=== PATIENT | female | born 1955 | race Caucasian/White ===

== ENCOUNTER 2024-03-12 15:57 | Inpatient (IN) | payer OTHER, SELFPAY ==
[2024-03-12] VITALS (41 sets, daily range): BP systolic 59–173; BP diastolic 23–141; BMI 30.9
--- NOTE | 2024-03-12 13:51 | ED.GENMED ---
History of Present Illness
General
Chief Complaint: CODE
Time Seen by Provider: 03/12/24 13:46
History of Present Illness
History of Present Illness:
TIME OF INITIAL ENCOUNTER: 1:30 PM
HPI: At 1:30 PM, the patient stepped out of the car and collapsed in front of the waiting room. She was immediately brought back to room 41 and was found to be pulseless. Chest compressions were immediately started. At 1:35 PM, she was given
epinephrine and at 1:36 PM she had ROSC. She was intubated without difficulty. I spoke to the daughter at 1:55 PM. The daughter tells me that the patient has bipolar disorder. She lives with her who has dementia. Yesterday, they
considered coming to the hospital because 'she could not walk up steps'. Daughter states that she has been manic recently as she has a history of bipolar disorder.
EXAM:
GENERAL: Critically ill in appearance, unresponsive, pulseless upon arrival
HEENT: Pupils are approximately 5 mm but sluggish
CARDIOVASCULAR: On initial evaluation, the patient was pulseless with poor perfusion
PULMONARY: Agonal respirations upon arrival, after intubation, the breath sounds were nearly equal anteriorly
ABDOMEN: Soft with no peritoneal signs, no tenderness
NEUROLOGIC: Absent active range of motion
PSYCHIATRIC: Nonverbal
EXTREMITIES: No spontaneous movement of the extremities
SKIN: Mottled skin
NUMBER AND COMPLEXITY OF PROBLEMS ADDRESSED AT THE ENCOUNTER
� Chronic conditions affecting care: Hypothyroidism, hyperlipidemia, hypertension.
� Acute Exacerbation and/or Progression of Chronic Illness: This is an acute problem
� Differential Diagnosis includes: Cardiac arrest, sepsis, drug overdose, septic shock, PE
AMOUNT AND/OR COMPLEXITY OF DATA TO BE REVIEWED AND ANALYZED
� I performed an independent evaluation of and my interpretation is:
EKG: Sinus 134, nonspecific ST abnormality
CT:
X-rays: Chest x-ray personally viewed, marked abnormality noted in the left lung field, ET tube tip above the denisse right lung unremarkable
Laboratory Studies: White count 38, bicarb 10, creatinine 1.9, ALT 1365, alk phos 143
Other:
� Review of other/old records: No old records available for review
� Clinical information was obtained by an independent historian: I spoke to the daughter
� Prescriptions/Medications Considered but not given:
� Further testing considered but not performed:
RISK OF COMPLICATIONS AND/OR MORBIDITY OR MORTALITY OF PATIENT MANAGEMENT
� Social determinants of health affecting care: Lives at home with her who has dementia
� Discussion with other providers: Hospitalist for admission and I also notified the door to door sales representative at 2:53 PM
� Escalation of care including admission/observation vs risk of discharge considered: See HPI and below
ANY OTHER UPDATES:
See above
1:45 PM: I reviewed medications which include amlodipine, paroxetine, irbesartan, amlodipine, levothyroxine, simvastatin, trazodone
2:03 PM: The patient now is more awake, with eyes opening and moving all extremities. Considered extubation however given her recent unstable presentation, will sedate and keep intubated. CT pending. She is afebrile rectally.
2:34 PM: I reviewed labs, alcohol, salicylates, acetaminophen not detected. White count 38.3, hemoglobin normal, ABG pending, creatinine 1.9 with no old to compare, bicarb 10. She was given IV fluids.
2:45 PM: Pressures very low, despite IV fluids, will add norepinephrine. Bandemia noted�will add broad-spectrum antibiotics and add CT of the abdomen pelvis.
2:50 PM: I personally reviewed CT of the brain and I see no acute abnormality. Transaminases markedly elevated.
3:20 PM: Large left-sided pleural effusion noted on CT
Although patient's renal insufficiency is noted, she has a life-threatening condition and initially unexplained cardiac arrest therefore I felt it was imperative to rule out a PE as cause for cardiac arrest therefore contrast was given despite renal
insufficiency. I informed family of this.
Phy Exam
Physical Exam
Physical Exam:
See HPI
Sepsis
Sepsis Screening
Sepsis Assessment: Septic Shock
Sepsis Screening: Sustained Hypotension-SBP <90,MAP<65, or SBP decrease 40mmHg or more
Sepsis Screen
Sepsis Screen: Septic Shock
Date: 03/12/24
Time: 15:55
Course
Orders/Labs/Results
Orders:
Orders
03/12/24
Electrocardiogram (*1) Stat
Reason for Study: Other
Comment: already done
03/12/24 13:46
EPINEPHrine [Adrenalin 1 mg/10 ml] 1 mg IV NOW STA
Etomidate [Amidate] 10 mg IV NOW STA
Succinylcholine Chloride [Anectine] 100 mg IV NOW STA
03/12/24 13:47
CR Chest Portable - 1 View Urgent
Comment:
Reason For Exam: intubation
Reason Study Needs to be Portable: Patient Unstable
03/12/24 13:48
CT Head W/o Iv Contrast Urgent
Comment:
Reason For Exam: unresponsive
CT Pe/abd/pel W Urgent
Reason For Exam: arrest; ROSC
ABG [Arterial Blood Gas] Urgent
%Oxygen/Room Air: 100
Fentanyl Citrate/Pf [Sublimaze] 50 mcg IV NOW STA
Fentanyl Citrate/Pf [Sublimaze] 50 mcg IV [id number] PRN
03/12/24 14:00
Acetaminophen Urgent
Alcohol Urgent
Complete Blood Count/With Diff Urgent
Comprehensive Metabolic Panel Urgent
Manual Differential Urgent
NT-proBNP Urgent
Salicylate Urgent
TSH Reflex To Free T4 Urgent
Triglycerides Routine
Comment: baseline levels with propofol infusion
Troponin I Urgent
FentaNYL 1,000 MCG/100 ML [Sublimaze] 1,000 mcg in 100 ml IV PER PROTOCOL
Indication:: Deep Sedation
Begin Infusion:: Now
Goal:: RASS </= -3, BIS 40-60, ventilator synchrony
Maximum dose in mcg/hr:: 300
Continue currently infusing dose and titrate:: Yes
Titration Instructions:: Titrate Q30 min until ventilator synchrony, RASS or BIS goal is met.
Titration Instructions:: If RASS >/= -2 or BIS > 60 or ventilator dyssynchrony:
Titration Instructions:: administer bolus dose and increase infusion by 25 mcg/hr.
Titration Instructions:: Administer analgesia bolus dose(s) & titrate analgesia prior to
Titration Instructions:: adjusting sedation.
Over-sedation Instructions:: if BIS < 40 and pt is synchronous with ventilator, decrease infusion by
Over-sedation Instructions:: 25 mcg/hr every 2 hours until BIS = 40-60.
Over-sedation Instructions:: Do not wean infusion to off if patient is receiving a continuous NMBA or
Over-sedation Instructions:: has received a bolus dose of NMBA within the past 3 hours.
Notify provider:: immediately if pt exhibits signs/symptoms of chest wall rigidity,
Notify provider:: hemodynamic instability, or agitation/pain despite maximum dosing.
Additional Instructions:: Patient MUST be mechanically ventilated.
Propofol 1,000,000 Mcg/100 ml [Diprivan] 1,000,000 mcg in 100 ml IV PER PROTOCOL
Indication:: Deep Sedation
Begin Infusion:: Now
Goal:: RASS -3 to -5 or BIS < 60 or ventilator synchrony
Maximum dose in mcg/kg/min:: 50
Initial dose based on RASS:: Yes
If RASS is:: +1 or pt hemodynamically unstable (SBP < 90mmHg), initiate at 10 mcg/kg/min
If RASS is:: +2, initiate at 20 mcg/kg/min
If RASS is:: greater than or equal to +3, initiate at 30 mcg/kg/min
Titration Instructions:: Titrate by 5-10 mcg/kg/min every 5 minutes until RASS -3 to -5 or
Titration Instructions:: BIS < 60 or ventilator synchrony is met.
Titration Instructions:: Administer analgesia bolus dose(s) & titrate analgesia prior to
Titration Instructions:: adjusting sedation.
Taper Instructions:: If RASS is at or below goal for 4 consecutive hours decrease infusion by
Taper Instructions:: 5-10 mcg/kg/min every 2 hours. Do not wean infusion to off if patient is
Taper Instructions:: receiving a continuous NMBA or has received bolus NMBA with the past 3 hrs
Over-sedation Instructions:: If BIS < 40 and synchronous with ventilator decrease infusion by
Over-sedation Instructions:: 5-10 mcg/kg/min every 2 hour until BIS = 40-60.
Notify provider:: immediately if patient exhibits signs/symptoms of propofol-related
Notify provider:: infusion syndrome.
Additional Instructions:: Patient MUST be mechanically ventilated and MUST receive analgesia.
03/12/24 14:01
Drug Screen, Urine [Urine Drug Abuse Screen] Urgent
Urinalysis Reflex To Culture Urgent
03/12/24 14:05
Propofol [Diprivan] 20 ml .ROUTE .STK-MED
03/12/24 14:06
Fentanyl Citrate/Pf [Sublimaze] 100 mcg .ROUTE .STK-MED ONE
03/12/24 14:35
0.9% Sodium Chloride 1000 ml [Nss] 1,000 ml IV BOLUS
03/12/24 14:40
Cefepime HCl [Maxipime] 1,000 mg IV NOW STA
03/12/24 14:41
Straight cath- Treatment ONCE
Vancomycin [Vancocin] 2,000 mg 0.9% Sodium Chloride 500 ml [Nss] 500 ml IV NOW
03/12/24 14:45
NORepinephrine 4 MG/250 ML [Levophed] 4 mg in 250 ml IV PER PROTOCOL
Initial dose in mcg/min, then titrate:: 4
Titrate to keep:: MAP > 65 mmHg
Titrate by mcg/min:: 1-2 mcg/min
Frequency of titrations (minutes):: 5
Maximum dose in ICU in mcg/min:: 30
Maximum dose in IMU in mcg/min:: 8
Maximum dose in IVU in mcg/min:: 4
Begin to taper infusion when:: Remained at goal for 4hrs
Taper by mcg/min:: 1-2 mcg/min
Frequency of taper (minutes) if patient maintains goal:: 30
Taper to off?: Yes
If infusion off & no longer maintaining goal:: Contact Provider
03/12/24 15:26
Ammonia Urgent
Lactic Acid Q4H
Comment: CANCEL 2nd LACTIC ACID IF 1st LACTIC ACID IS LESS THAN 2
Blood Culture Q30M
LANA Source: Blood/Venous
Specimen Description:
Blood Culture Q30M
LANA Source: Blood/Venous
Specimen Description:
03/12/24 15:33
Consult Interventional Radiology [IRAD CONSULT] Routine
Consulting Provider: Epifanio Nickerson
Was physician already notified: Yes
Reason for Consult/Procedure: left thora and if empyema chest tube. Rt IJ for central access
Acknowledgement that appropriate orders are entered: Yes
03/12/24 15:34
Body Fluid Cell Count Routine
What is the Body Fluid: pleural fluid
Comment: post procedure
Body Fluid LDH Routine
Fluid Source: Pleural
Body Fluid pH Routine
Fluid Source: Pleural
03/12/24 15:35
Body Fluid Glucose Routine
Fluid Source: Pleural
Body Fluid Protein Routine
Fluid Source: Pleural
Fluid Culture with Gram Stain Routine
LANA Source: Pleural Fluid
Specimen Description:
Comment: post procedure
Gram Stain Routine
LANA Source: Pleural Fluid
Specimen Description:
Comment: POST PROCEDURE
IRAD Cytology Routine
Source: Pleural Fluid, Left
Clinical Impression: pneumonia
03/12/24 15:40
Admit/Transfer Patient As Directed
Co-Sign Provider:
Level of Care: Inpatient admission
Assign to:: ICU
Physician / Group: shai
Diagnosis: Septic shock empyema
Reason for Hospitalization: Septic shock empyema
Expected length of stay greater than two midnights?: Yes
ELOS- Estimated Length of Stay in days: 2
I certify the patient meets the requirements for IP care: Yes
PRN Pain Medication Management As Directed
May give lesser potent ordered pain med per pt: Yes
preference::
Protocol:: Medication orders for pain may be administered in a
manner that supports deferring to patient preference
when the pt is:
- Requesting an ordered lesser potent pain medication.
Least to most potent pain medications are defined
as: acetaminophen < NSAID < tramadol < opioids
(morphine, oxycodone, hydromorphone).
- Requesting a lesser dose of the same medication IF
ORDERED.
- Requesting a less intrusive route of administration
if both routes are prescribed by the provider (PO <
IV).
03/12/24 15:41
Code Status As Directed
Resuscitation Status: Full Code
03/12/24 15:44
Sodium Bicarbonate 50 meq IV NOW STA
03/12/24 18:45
Lactic Acid Q4H
Comment: CANCEL 2nd LACTIC ACID IF 1st LACTIC ACID IS LESS THAN 2
03/13/24 08:00
Polyethylene Glycol Powder [Miralax] 17 grams TUBE DAILY
03/15/24 06:00
Triglycerides Q3D
Comment: every 72 hours while patient is on propofol
03/18/24 06:00
Triglycerides Q3D
Comment: every 72 hours while patient is on propofol
03/21/24 06:00
Triglycerides Q3D
Comment: every 72 hours while patient is on propofol
Abnormal Lab Results
03/12/24
14:00
WBC 38.3 H 10^3/uL
(4.8-10.8)
RBC 5.50 H 10^6/uL
(4.20-5.40)
MCH 25.8 L pg
(27.0-31.0)
MCHC 30.2 L g/dL
(33.0-37.0)
RDW 15.3 H %
(11.5-14.5)
MPV 12.0 H fL
(7.4-10.4)
Abs Neuts (Manual) 35.2 H 10^3/uL
(1.4-6.5)
Band Neutrophils 22 H %
(0-3)
Lymphocytes (Manual) 4 L %
(20-51)
Potassium 5.5 H mmol/L
(3.5-5.1)
Carbon Dioxide 10 L* mmol/L
(22-30)
BUN 44 H mg/dl
(7-17)
Creatinine 1.9 H mg/dL
(0.6-1.0)
Glucose 213 H mg/dl
(70-99)
AST 1712 H* U/L
(14-36)
ALT 1365 H* U/L
(0-35)
Alkaline Phosphatase 143 H U/L
(38-126)
Triglycerides 188 H mg/dl
(10-149)
Salicylates < 1.0 L mg/dl
(2.0-20.0)
Acetaminophen < 10 L ug/ml
(10-30)
03/12/24 14:00
03/12/24 14:00
Vital Signs
Initial and Last Documented VS:
Initial Vital Signs
Pulse Resp BP Pulse Ox
125 17 153/141 98
03/12/24 13:43 03/12/24 13:43 03/12/24 13:43 03/12/24 13:43
Last Documented Vital Signs
Pulse Resp BP Pulse Ox
81 16 92/78 99
03/12/24 15:40 03/12/24 15:40 03/12/24 15:40 03/12/24 14:31
Procedures
Intubations
Procedure completed by: BJ Gilmore with me, Dr. See in attendance at bedside
Method of Intubation: glidescope
Tube size (cm): 8.0
Placement confirmed by: capnography
Breath sounds after intubation: equal
Intubation complications: no complications
Other
Indication for procedure:: Cardiac arrest, chest compressions
Procedure completed by: Ancillary staff under my direct supervision
Consent form signed: No
If no, reason: Emergency procedure
*Critical Care Note
Total Time (30-74mins, 75-104mins- exclusive of procedures): 60min
comment:
Chest compressions started for approximately 4 minutes due to PEA. Vital signs closely monitored. Marked lab abnormalities addressed. Aggressive IV fluids and then pressors.
ED Attending Note
-
Portions of this chart may have been created with voice recognition software.� Occasional wrong word or��sound alike� substitutions may have occurred due to the inherent limitations of voice recognition software.
Discharge Plan
Departure
Patient Disposition: Admit
Date of Disposition: 03/12/24
Time of Disposition: 14:54
Presentation/result/management discussed w/ accepting MD/DO: Hospitalist
Discharge Problem:
Septic shock
Prescriptions:
No Action
amlodipine [Norvasc] 10 mg Tablet
10 mg PO DAILY
levothyroxine [Synthroid] 50 mcg Tablet
50 mcg PO DAILY
paroxetine HCl [Paxil] 20 mg Tablet
20 mg PO DAILY
simvastatin [Zocor] 20 mg Tablet
20 mg PO QPM
trazodone 150 mg Tablet
300 mg PO HSPRN PRN (Reason: sleep)
irbesartan 150 mg Tablet
150 mg PO DAILY
paroxetine HCl [Paxil] 40 mg Tablet
40 mg PO DAILY
Referrals:
UNKNOWN,NO INTERVIEW [Unknown Provider] -
Interventions
Interventions:
*Risk Screen - Suicide Last Done: 03/12/24 13:43
*General Assessment Last Done: 03/12/24 13:43
*Neglect/Abuse Screening Last Done: 03/12/24 13:43
ED- Cardiac Assessment Last Done: 03/12/24 15:00
ED- Pulmonary Assessment Last Done: 03/12/24 15:00
Discharge Date and Time
Print Language: CITIZEN OF [place]
[2024-03-12 14:15] LABS: Hemoglobin 14.2 g/dL (12.0-16.0); Mean Corp Hgb Conc. 30.2 g/dL (33.0-37.0); Mean Corpuscular Hgb 25.8 pg (27.0-31.0); Mean Corpuscular Volume 85.5 fL (81.0-99.0); Platelet Count 168 10^3/uL (130-400); Red Cell Dist. Width 15.3 % (11.5-14.5); White Blood Cell Count 38.3 10^3/uL (4.8-10.8)
[2024-03-12] MEDS: DIPRIVAN 100 IV ×2 (14:19→17:31)
[2024-03-12] MEDS: SUBLIMAZE 100 IV (14:22)
[2024-03-12 14:26] LABS: Acetaminophen < 10 ug/ml (10-30); Albumin 3.5 g/dl (3.5-5.0); Alkaline Phosphatase 143 U/L (38-126); Blood Urea Nitrogen 44 mg/dl (7-17); Calcium 9.4 mg/dl (8.4-10.2); Carbon Dioxide 10 mmol/L (22-30); Chloride 105 mmol/L (98-107); Glucose 213 mg/dl (70-99); Potassium 5.5 mmol/L (3.5-5.1); Salicylate < 1.0 mg/dl (2.0-20.0); Sodium 142 mmol/L (135-145); Total Bilirubin 1.3 mg/dl (0.2-1.3); Total Protein 6.5 g/dl (6.3-8.2); Triglycerides 188 mg/dl (10-149); eGFR 28.76
[2024-03-12 14:27] LABS: Alcohol None Detected
[2024-03-12 14:32] LABS: Lymphocytes 4 % (20-51); Monocytes 3 % (2-9); Segmented Neutrophils 70 % (42-75)
[2024-03-12 14:33] LABS: NT-proBNP 1310 pg/ml; Platelets Checked Yes; Troponin I 0.025 ng/ml
[2024-03-12 14:35] LABS: Absolute Neutrophils -Man Diff 35.2 10^3/uL (1.4-6.5); Band Neutrophils 22 % (0-3); Metamyelocytes 1 % (-)
[2024-03-12 14:36] LABS: Normal RBC Morphology Yes; Total Cells Counted 100
[2024-03-12 14:51] LABS: ALT (SGPT) 1365 U/L (0-35)
[2024-03-12 14:59] LABS: TSH Reflex To Free T4 2.82 uIU/ml (0.47-4.68)
--- NOTE | 2024-03-12 15:05 | PHANOTE ---
med rec note- called patient primary at [phone] to see is they can fax over medication list, андрей has no pdmp or ecw, patient came to er with bag of medication will transfer downstairs
[2024-03-12] MEDS: LEVOPHED 250 IV (15:11)
[2024-03-12 15:21] LABS: AST (SGOT) 1712 U/L (14-36)
--- NOTE | 2024-03-12 15:46 | HPS.HSE ---
Family Physician
-
Family Physician: WILLI Juárez
Chief Complaint
-
unreponsive
History of Present Illness
68-year-old female past medical history of hypertension, hypothyroidism, bipolar disorder, hyperlipidemia, presenting for unresponsiveness. At 1:30 PM today patient stepped out of the car and collapsed in front of the waiting room. She was
immediately brought into the room and found to be pulseless. Chest compressions were started immediately. At 1:35 PM she was given epinephrine and she achieved ROSC at 1:36 PM. Was intubated without difficulty.
Patient lives with her who has severe dementia. Yesterday patient was considering coming to the hospital but she could not walk up steps.
History is obtained from patient's daughter. Daughter states that patient has been having worsening depressive symptoms over the past few weeks. She has a history of bipolar disorder. She has not been taking care of herself and been more
withdrawn and staying at home. Patient does see a psychiatrist but daughter is not aware that she has been on any new medications recently.
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 No history of known IV drug abuse. Patient does not drink alcohol or smoke or use any drugs
Medical History
Past Medical History
Past Medical History: Reports Other (hypertension, hypothyroidism, bipolar disorder, hyperlipidemia)
Past Surgical History: Reports Other (LEAP procedure )
Social History
Tobacco: Non-smoker
Alcohol: None
Drug: Other
Family History
Family History: Not pertinent
Allergies / Home Medications
Allergies reflects when Allergies were last updated in [employer].
Home Medications with original date entered in [employer]
Allergy/Medication List:
Allergies
Allergy/AdvReac Type Severity Reaction Status Date / Time
No Known Allergies Allergy Unverified 03/12/24 13:53
Home Medications
amlodipine 10 mg tablet (Norvasc) 10 mg PO DAILY 03/12/24
irbesartan 150 mg tablet 150 mg PO DAILY 03/12/24
levothyroxine 50 mcg tablet (Synthroid) 50 mcg PO DAILY 03/12/24
paroxetine HCl 20 mg tablet (Paxil) 20 mg PO DAILY 03/12/24
paroxetine HCl 40 mg tablet (Paxil) 40 mg PO DAILY 03/12/24
simvastatin 20 mg tablet (Zocor) 20 mg PO QPM 03/12/24
trazodone 150 mg tablet 300 mg PO HSPRN PRN sleep 03/12/24
Review of Systems
-
History Source: Patient
A 12 point ROS was completed and negative except as noted: Yes
Constitutional: Reports No Symptoms
EENT: Reports No Symptoms
Respiratory: Reports See HPI
Cardiac: Reports No Symptoms
Abdomen/GI: Reports No Symptoms
: Reports No Symptoms
Musculoskeletal: Reports No Symptoms
Skin: Reports No Symptoms
Neurological: Reports No Symptoms
Endocrine: Reports No Symptoms
Hematologic/Lymphatic: Reports No Symptoms
Psych: Reports See HPI
Physical Exam
Vital Signs
Vital Signs
Pulse Resp BP Pulse Ox
81 16 92/78 99
03/12/24 15:40 03/12/24 15:40 03/12/24 15:40 03/12/24 14:31
Physical Exam
General: Well Developed, Well Nourished and No Apparent Distress
HEENT: NormoCephalic, Moist mucous membranes and Atraumatic
Respiratory: Clear
Cardiac: S1/S2 and Regular Rhythm; No Murmur or Rub
GI: Soft, Non Tender, Non Distended and Normal Bowel Sounds; No Organomegaly
Rectal: Deferred by Provider
Musculoskeletal: No Clubbing, No Cyanosis and No Edema
Skin: No Rash
Neuro: Nonfocal/grossly intact
Laboratory Results
-
03/12/24 14:00
03/12/24 14:00
Laboratory Results
Total Bilirubin 1.3 mg/dl (0.2-1.3) 03/12/24 14:00
AST 1712 U/L (14-36) H* 03/12/24 14:00
ALT 1365 U/L (0-35) H* 03/12/24 14:00
Alkaline Phosphatase 143 U/L (38-126) H 03/12/24 14:00
Troponin I 0.025 ng/ml 03/12/24 14:00
Data Reviewed
-
Lab Data: Labs Reviewed by me
Old Records: Reviewed
Impression/Plan
-
IMPRESSION:
PLAN:
# Septic shock (hypotension, tachycardia, leukocytosis, tachypnea) possibly secondary to left-sided endobronchial infection/postobstructive pneumonia/empyema
-Chest x-ray shows complete opacification of the left hemithorax without shift and there is endobronchial obstruction with postoperative atelectasis/pneumonia, pleural effusion with underlying atelectasis
-Continue IV fluids
-Levophed started
-CT abdomen pelvis pending
-Check blood cultures
-Vancomycin/Zosyn
-IR consulted for thoracentesis and possible chest tube and to place central line
# Cardiac arrest likely secondary to hypoxemic respiratory failure from pulmonary infection
-Patient was previously more awake, eyes opening and moving all extremities, extubation was considered however given that she was recently unstable we will continue to sedate and keep intubated
-Tylenol, salicylate and alcohol level negative
-Check UDS
-ABG pending
-Ammonia level pending, lactic acid level
-Continue propofol, fentanyl
-CT head shows no acute abnormality
-Protonix daily while intubated
# Acute kidney injury
# Anion gap metabolic acidosis secondary to septic shock/hypotension/cardiac arrest
# Hyperkalemia
-IV fluids with bicarb push
# Transaminitis likely secondary to shock liver
-Continue to monitor
Untreated bipolar disorder
-Hold trazodone, paroxetine
-Will need psychiatry evaluation once more awake due to ongoing depressive symptoms
Essential hypertension
-Hold amlodipine, irbesartan,
Hypothyroidism
-Hold levothyroxine
Hyperlipidemia
-Hold statin
Full code
DVT prophylaxis�heparin
N.p.o.
[2024-03-12] MEDS: SODIUM BICARBONATE 50 MEQ IV (15:51)
[2024-03-12] MEDS: NSS 1000 IV (15:51)
[2024-03-12] MEDS: MAXIPIME 1000 MG IV (15:51)
[2024-03-12 15:59] LABS: Ammonia 15 umol/L (9-30)
[2024-03-12 16:05] LABS: Lactic Acid 10.7 mmol/L (0.7-2.0)
[2024-03-12] MEDS: SUBLIMAZE 50 MCG IV (16:13)
[2024-03-12 16:20] LABS: INR 2.43; PT 26.3 Sec (11.4-14.6)
[2024-03-12 16:28] LABS: B.E. -10.6 mmol/L; HCO3 16.3 mmol/L (21-28); O2 Saturation % 99.7 % (94-98); PCO2 39 mmHg (32-35); PO2 140 mmHg (83-108); pH 7.23 (7.35-7.45)
--- NOTE | 2024-03-12 16:45 | CON.INTV ---
Consultation
Consultation Request
Date/Time Consultation Requested: 03/12
Date/Time Consultation Performed: 03/12
Reason for Consultation: Critical care
Medical History
-
History of Present Illness:
History obtained from the chart and also from daughter and [id number]. Patient is a 68-year-old female with history of bipolar disorder who does not routinely see providers. According to the daughter, patient has periodical manic episodes.
Patient has been complaining of cough for the last couple of weeks but has not been clear in explaining symptoms to family. Daughter convinced patient to come to the hospital for evaluation. Upon arrival to [facility], patient fell when
she stepped out of the car and collapsed in front of the waiting room. Upon arrival to the ER, found to be pulseless, chest compressions were started. Patient was given epinephrine x 1 with return of spontaneous circulation. Patient was intubated
by ED staff. It is noted that patient then woke up and was moving spontaneously. Decision was made to sedate patient due to unclear etiology of presentation. Chest x-ray revealed whiteout of left lung with mild shift to the right. CT chest
confirm complete collapse of left lung with large pleural effusion. Patient mated to ICU 03/12/2024
.
PMH: Hypertension, hypothyroidism, hyperlipidemia, history of bipolar disorder. History of cervical cancer/LEEP procedure many years ago. Patient has history of recurrent UTIs/bladder infections
Past Medical History
Past Medical History: None (See above)
Past Surgical History: None (See above)
Social History
Tobacco: Former Smoker (Quit many years ago)
Alcohol: None
Drug: Other (Substance abuse in the past, Valium)
Personal:
Living: With Family
Employment: Not Employed
Family History
Family History: Other (1 daughter healthy)
Allergies / Home Medications
Allergies
Allergy/AdvReac Type Severity Reaction Status Date / Time
No Known Allergies Allergy Unverified 03/12/24 13:53
Home Medications
�Medication �Instructions �Recorded �Confirmed �Last Taken �Type
amlodipine 10 mg tablet (Norvasc) 10 mg PO DAILY 03/12/24 03/12/24 Unknown History
irbesartan 150 mg tablet 150 mg PO DAILY 03/12/24 03/12/24 Unknown History
levothyroxine 50 mcg tablet 50 mcg PO DAILY 03/12/24 03/12/24 Unknown History
(Synthroid)
paroxetine HCl 20 mg tablet (Paxil) 20 mg PO DAILY 03/12/24 Unknown History
paroxetine HCl 40 mg tablet (Paxil) 40 mg PO DAILY 03/12/24 03/12/24 Unknown History
simvastatin 20 mg tablet (Zocor) 20 mg PO QPM 03/12/24 03/12/24 Unknown History
trazodone 150 mg tablet 300 mg PO HSPRN PRN sleep 03/12/24 03/12/24 Unknown History
Review of Systems
-
Unable to Obtain full review of systems at this time due to: Patient Intubation
History Source: Family
Vitals / Labs / Diagnostic Testing
Vital Signs
Pulse Resp BP Pulse Ox
82 16 111/49 93
03/12/24 16:15 03/12/24 16:15 03/12/24 16:15 03/12/24 16:15
Lab Data
03/12/24 14:00
03/12/24 14:00
Laboratory Results
03/12/24 03/12/24 03/12/24
15:26 15:59 16:20
PT Cancelled 26.3 H
INR Cancelled 2.43
pH 7.23 L
pCO2 39 H
pO2 140 H
HCO3 16.3 L
O2 Delivery Level
Diagnostic Testing:
Physical Exam
-
HEENT: Normocephalic and Anicteric
Cardiovascular: S1/S2, Regular Rhythm, Murmur (n), Rub (n) and Peripheral Edema (n)
Respiratory: Wheeze (n), Rales (n), Rhonchi (n) and Other (Decreased breath sounds left side)
GI: Soft and Non Distended
Neurology: Other (Sedated)
Skin: Other (Herpetic appearing rash left buttock)
General: Comfortable
Assessment
-
68-year-old female with hypertension, hypothyroidism, bipolar disorder with questionable history of cervical cancer many years ago, distant tobacco history, history of substance abuse with Valium who presents with 2 to 3-week history of cough,
presented with cardiac arrest, received CPR, epinephrine x 1 with ROSC, intubated in ED. Found to have whiteout left lung, large pleural effusion, leukocytosis, hypotension, suspected sepsis
S/p Cardiac Arrest
CPR, epi x 1, ROSC in ED
VDRF, intubated in ED 03/12
Left lung whiteout
Suspected pneumonia with large pleural effusion
Leukocytosis
Sepsis, hypotension
Suspected pneumonia versus urinary tract infection
Metabolic acidemia
Elevated lactate
Acute renal insufficiency
Shock liver
Bronchitis x 3 weeks
Coagulopathy, INR 2.43
Questionable renal mass
Conditions present prior to admission
Hypertension/hyperlipidemia
Hypothyroidism
Bipolar disorder
Questionable distant history of cervical cancer,
History of substance abuse, Valium
Plan/recommendations
At this time, patient is critically ill but stabilized
Responded to IV fluids, norepinephrine
Patient also received vancomycin/Zosyn
Pancultured
Reviewed CT chest
Suspected pneumonia with possible empyema. No clear history of falls per daughter
Thoracentesis and chest tube as indicated
Central line per IR as able
Depending on her response to thoracentesis/chest tube, may require bronchoscopic evaluation for endobronchial process
Currently on volume-cycled ventilation, tidal volume 500. Appropriate adjustments will be made
Wean FiO2 as able
Peak and plateau pressures adequate
Daily chest x-ray
Daily ABG
Continue with volume-cycled ventilation. Airway pressures adequate
ABG noted
Continue sedation for now fentanyl/propofol
Pradhan catheter
There is a herpetic appearing rash involving the left buttock
Wound care
May require further evaluation, treatment
Patient with episode of emesis upon arrival to ICU
OG tube for now
Divan how she does, tube feeds but for now we will hold off
Coagulopathy noted
Likely secondary to shock liver
Follow clinically
Daughter describes home situation is not optimal. has significant Alzheimer's dementia
Patient does not take care of herself, found unkempt. This is a chronic problem according to daughter
DVT prophylaxis: Subcutaneous heparin
GI prophylaxis: Not indicated at this time
Reviewed with critical care nursing, respiratory care, ED staff, IR
TCCT 35 min
[2024-03-12 17:03] LABS: APTT 41.1 Sec (23.4-35.0)
[2024-03-12] MEDS: VANCOCIN 540 MG IV (17:05)
[2024-03-12] MEDS: LR 1000 IV (17:10)
[2024-03-12] MEDS: SODIUM BICARBONATE 1150 MEQ IV (17:19)
[2024-03-12 17:32] LABS: Urine Albumin 1+ (Neg - Trace); Urine Bilirubin 1+ (Negative); Urine Character Slightly Cloudy (Clear); Urine Color Amber; Urine Glucose Negative (Negative); Urine Ketone Negative (Negative); Urine Leukocyte Trace (Negative); Urine Nitrite Negative (Negative); Urine Occult Blood 3+ (Negative); Urine Urobilinogen 2+ (Neg - 1+)
--- NOTE | 2024-03-12 17:41 | PTCARENOTE ---
Addendum entered by Randi Lockett RN 03/12/24 19:09:
large amount CT output. paient hypothermic, smith hugger applied. restless with propofol decrease. adjustments made. family at bedside, updated, orders received
Original Note:
patient received from ED@4235. assessments per work list. patient with foul body odor, hair matted, skin noted to be soiled. fungal rash under breasts, groin and abdomen. red crusted rash noted on buttocks. Staff Psychologist at bedside to assess,possible
shingle rash as it follows a dermatome. deep skin tears noted left ankle. no breath sounds left, right with coarse breath sounds. unresponsive. fentanyl and propofol per work list. Levophed per work list. propofol wean per RASS. [place] sump inserted
without issue, Pradhan inserted, kaylynn yellow urine. LR fluid bolus initiated. IRAD at bedside. left chest tube inserted, serous sanguinous fluid. IRAD inserting right IJ triple lumen.
--- NOTE | 2024-03-12 17:48 | PHA.VAN.IN ---
Assessment
- Assessment
Renal Function: Unknown baseline
Concomitant Antimicrobials: piperacillin/tazobactam
Plan
- Plan
Initial / Loading Dose: vanc 2000mg administered @ 1705
Maintenance Regimen: dosing by level
Monitoring: random level 03/13 06
MRSA Screen: Ordered per protocol
Pharmacokinetics Vancomycin I
- -
Patient Age: 68
Patient Sex: Female
Vancomycin Day #: 1
Indication: Pulmonary/Respiratory
Requesting Provider: Dr. Parsons
Pertinent Antimicrobial Allergies:
no pertinent antimicrobial allergies
Height / Weight:
Actual Weight 95 kg
- Vital Signs / Lab Results
Pulse Resp BP Pulse Ox
81 16 133/62 95
03/12/24 17:15 03/12/24 17:15 03/12/24 17:15 03/12/24 17:27
Lab Results - Hematology
03/12/24
14:00
WBC 38.3 H
Band Neutrophils 22 H
Lab Results - Chemistry
03/12/24
14:00
BUN 44 H
Creatinine 1.9 H
Albumin 3.5
03/12/24
15:26
Lactic Acid 10.7 H*
Lab Results - Urine
03/12/24
17:04
Urine Nitrite (Reflex) Negative
Leukocyte Esterase Rfl Trace A
[2024-03-12 17:59] LABS: Urine Mucus Few; Urine Squamous Cell >30 /LPF (Few)
[2024-03-12 18:00] LABS: Urine Amorphous Seen; Urine Bacteria Few (Negative); Urine Uric Acid Crystals Present
--- NOTE | 2024-03-12 18:04 | W.PN.UPDATE ---
Update Note
Progress Note Update
- RIJ triple lumen catheter placed bedside
- US guided L chest tube with return of serosanguineous fluid
[2024-03-12 18:07] LABS: Amphetamines Negative (Negative); Barbiturates Negative (Negative); Benzodiazepines Negative (Negative); Buprenorphine Negative (Negative); Cocaine Negative (Negative); Marijuana Negative (Negative); Methadone Negative (Negative); Methamphetamines Negative (Negative); Opiates Negative (Negative); Phencyclidine Negative (Negative); Tricyclic Antidepressants Negative (Negative)
[2024-03-12 18:10] LABS: Body Fluid pH 7.29
[2024-03-12 18:15] LABS: Body Fluid Polymorphonuclear 9.3 %; Body Fluid WBC 1463 /CUMM
[2024-03-12 18:16] LABS: Body Fluid Mononuclear 90.7 %
[2024-03-12 18:24] LABS: Body Fluid Glucose 203 mg/dl; Body Fluid LDH 262 U/L; Body Fluid Protein 3.5 g/dl; Body Fluid Second Tech EYM
[2024-03-12 18:35] LABS: Magnesium 2.8 mg/dl (1.6-2.3)
--- NOTE | 2024-03-12 19:50 | PTCARENOTE ---
Handoff report received from off going RN. Bedside gtt reconciliation completed. Patient received in bed on mechanical ventilation. Pt's on Levophed at 2 mcg/min, propofol at 10 mcg/kg/min, fentanyl gtt at 100 mcg/hr, and sodium bicarb at 100 ml/hr.
The patient has a left chest tube draining light red to pinkish blood to wall suction at -20 mmhg. The patient has a right nare ngt to LIWS draining small amount of dark brown output. Patient follows simple commands and is restless. Pupils are +2
and sluggish. Propofol titrated as per protocol. Restraints in use. Sinus rhythm on the monitor. Temp 96.2 via smith hugger. spO2 at 95% on ventilation setting Ac 16/450/5/70%. Diminished right lung sounds and absent left lung sounds. Hypoactive
bowel sounds. Temp sensing young catheter draining small amount of yellow urine. Mouth care provided. Full assessment as noted on the worklist.
[2024-03-12 19:59] LABS: Hematocrit 36.7 % (37.0-47.0); Hemoglobin 11.8 g/dL (12.0-16.0); Mean Corp Hgb Conc. 32.2 g/dL (33.0-37.0); Mean Corpuscular Volume 80.8 fL (81.0-99.0); Mean Platelet Volume 10.4 fL (7.4-10.4); Platelet Count 96 10^3/uL (130-400); Red Blood Cell Count 4.54 10^6/uL (4.20-5.40); Red Cell Dist. Width 15.4 % (11.5-14.5); White Blood Cell Count 33.2 10^3/uL (4.8-10.8)
[2024-03-12] MEDS: ZOSYN 50 IV (20:05)
[2024-03-12 20:21] LABS: Blood Urea Nitrogen 45 mg/dl (7-17); Calcium 7.5 mg/dl (8.4-10.2); Carbon Dioxide 20 mmol/L (22-30); Chloride 108 mmol/L (98-107); Estimated Creatinine Clearance 37 ml/min; Glucose 149 mg/dl (70-99); Lactic Acid 4.7 mmol/L (0.7-2.0); Magnesium 2.3 mg/dl (1.6-2.3); Potassium 6.3 mmol/L (3.5-5.1); Sodium 139 mmol/L (135-145); Triglycerides 171 mg/dl (10-149); eGFR 32.87
[2024-03-12] MEDS: NOVOLIN R 10 UNITS IV (20:35)
[2024-03-12] MEDS: DEXTROSE 50% SYRINGE 25 GRAMS IV (20:37)
[2024-03-12] MEDS: CALCIUM GLUCONATE 100 IV (20:42)
[2024-03-12] MEDS: DESENEX/MITRAZOL/ZEASORB 1 APPLIC TOPICAL (20:44)
--- NOTE | 2024-03-12 20:46 | PTCARENOTE ---
patient's potassium is 6.3 and calcium 7.5. Dextrose 25 grams IV and insulin 10 units IV administered. Calcium gluconate 2 grams administered.
--- NOTE | 2024-03-12 21:43 | PTCARENOTE ---
2123: Patient's SpO2 dropping rapidly from 95% to the mid 80s percentile. Administered 100% o2 via mechanical ventilation. Patient suctioned via ETT and oral. Scant amount of dark brown sputum. No improvement and SpO2 at 84%. Patient bagged and RT
paged.
2127: RT paged and at the bedside. Pt on FiO2 100% without improvement. SHREDDED FILLER HOPPER FEEDER made aware and xray ordered.
2129: Propofol placed on hold and the patient started to ESPARZA x4. Propofol restarted.
2139: Levophed placed on hold at this time. Pt's MAP 70 mmHg.
2147- Xray at the bedside
[2024-03-12 22:24] LABS: B.E. -6.7 mmol/L; HCO3 19.7 mmol/L (21-28); O2 Saturation % 96.6 % (94-98); PCO2 42 mmHg (32-35); PO2 80 mmHg (83-108); pH 7.28 (7.35-7.45)
[2024-03-12] MEDS: HEPARIN 5000 UNITS SC (23:32)
[2024-03-12] MEDS: LR 500 IV (23:35)
[2024-03-12 23:53] LABS: Blood Urea Nitrogen 47 mg/dl (7-17); Calcium 8.4 mg/dl (8.4-10.2); Carbon Dioxide 20 mmol/L (22-30); Chloride 107 mmol/L (98-107); Estimated Creatinine Clearance 32 ml/min; Glucose 131 mg/dl (70-99); Potassium 5.9 mmol/L (3.5-5.1); Sodium 136 mmol/L (135-145); eGFR 27.04
[2024-03-12 23:59] LABS: Lactic Acid 4.7 mmol/L (0.7-2.0)
[2024-03-13] VITALS (10 sets, daily range): BP systolic 69–121; BP diastolic 43–91; BMI 31.8
[2024-03-13] LABS: Glucose - Point of Care 115 mg/dl (70-99)
[2024-03-13] MEDS: NOVOLOG FLEXPEN-LOW RESISTANCE SC ×2 (00:10→07:48)
[2024-03-13] MEDS: PITRESSIN 100 IV ×3 (00:47→14:50)
[2024-03-13] MEDS: SUBLIMAZE 100 IV (00:48)
[2024-03-13] MEDS: DIPRIVAN 100 IV ×2 (00:49→04:07)
[2024-03-13] MEDS: SUBLIMAZE 50 MCG IV (01:29)
[2024-03-13] MEDS: LEVOPHED 250 IV ×5 (01:53→15:15)
[2024-03-13] MEDS: ZOSYN 50 IV ×3 (02:01→13:35)
--- NOTE | 2024-03-13 02:28 | PTCARENOTE ---
2330: LR 500 ml bolus for low uop.
0000: Patient reassessed. MAEx4 and restless. Remains sinus rhythm on the monitor. chest tube draining sero-sang output. output as noted on the worklist.
0020- 0050: Pt's MAP 57 and trending down. SBP in the 90s and also trending downward. Levophed titrated per protocol and without improvement. GEOSPATIAL ANALYST made aware. the patient's BP continues to deteriorate. Okay to max out Levophed at 30 mcg/min.
Vasopressin ordered and initiated.. Enoc Morrell at the bedside.
[id number]:Pt's SpO2 at 87 % and declining. GEOSPATIAL ANALYST remains at the bedside. Pt suctioned for small amount of blood tinged sputum. 100% oxygen administered via ventilator without improvement. SpO2 at 80%. Okay to bag the patient per GEOSPATIAL ANALYST. SpO2 at 78% . 0108:
RT paged and at the bedside.
The patient is utilizing abdominal muscles. Patient maxed on propofol per GEOSPATIAL ANALYST. Ventilator setting AC 18/450/+8/80%. SpO2 at 95. Patient turned to the right using wedges. Okay to leave patient as is for now per GEOSPATIAL ANALYST.
0150: Pt's chest tube changed.
0215: Pt's SBP oin the 180s wuth MAP 100. Levophed titrated to 20 mcg/min per GEOSPATIAL ANALYST and continue to tirate Q5min by 5 mcg.
0240. Levophed at 10 mcg/min. pt's MAP at 79 mmHg. SpO2 at 100% via ventilator.
--- NOTE | 2024-03-13 03:24 | W.PN.UPDATE ---
Update Note
Progress Note Update
Procedure Note: Arterial Line�
� Left Wrist Arrow 20 (07/13)�
Diagnosis:��Sepsis//PNA
IV Line Comments: Uneventful Procedure�
Niraj's test completed pre-procedure: Yes�
A-Line Comments: Sterile technique as per standard protocol, Ultrasound guided insertion�
Functioning A-line in situ: Yes�
A-line Insertion Start Time:�2039�
A-line in at:��2044
[2024-03-13 04:23] LABS: Vancomycin Random 28.8 ug/ml
[2024-03-13 04:29] LABS: Alkaline Phosphatase 119 U/L (38-126); Blood Urea Nitrogen 49 mg/dl (7-17); Calcium 7.9 mg/dl (8.4-10.2); Carbon Dioxide 16 mmol/L (22-30); Chloride 103 mmol/L (98-107); Estimated Creatinine Clearance 28 ml/min; Glucose 139 mg/dl (70-99); Magnesium 2.3 mg/dl (1.6-2.3); Potassium 7.7 mmol/L (3.5-5.1); Sodium 135 mmol/L (135-145); Total Protein 4.4 g/dl (6.3-8.2); eGFR 22.87
[2024-03-13 04:50] LABS: ALT (SGPT) 3560 U/L (0-35)
[2024-03-13 05:06] LABS: AST (SGOT) 6044 U/L (14-36)
[2024-03-13] MEDS: DEXTROSE 50% SYRINGE 25 GRAMS IV ×3 (05:19→14:49)
[2024-03-13] MEDS: NOVOLIN R 10 UNITS IV ×2 (05:20→14:47)
[2024-03-13] MEDS: OFIRMEV 100 IV (05:44)
[2024-03-13 06:01] LABS: B.E. -12.9 mmol/L; PCO2 38 mmHg (32-35); PO2 188 mmHg (83-108)
[2024-03-13 06:06] LABS: HCO3 14.5 mmol/L (21-28); pH 7.19 (7.35-7.45)
[2024-03-13 06:14] LABS: Glucose - Point of Care 238 mg/dl (70-99)
[2024-03-13] MEDS: SODIUM BICARBONATE 50 MEQ IV ×5 (06:19→14:50)
[2024-03-13 06:21] LABS: % Basophils 0.5 % (0-2); % Immature Granulocytes 3.7 % (0-0.5); % Lymphocytes 3.7 % (20.5-51.1); % Neutrophils 89.1 % (42.2-75.2); Absolute Basophils 0.1 10^3/uL (0-0.2); Absolute Monocytes 0.8 10^3/uL (0.1-0.6); Absolute Neutrophils 23.7 10^3/uL (1.4-6.5); Hematocrit 35.9 % (37.0-47.0); Hemoglobin 11.2 g/dL (12.0-16.0); Mean Corp Hgb Conc. 31.2 g/dL (33.0-37.0); Mean Corpuscular Hgb 25.8 pg (27.0-31.0); Mean Corpuscular Volume 82.7 fL (81.0-99.0); Nucleated Red Blood Cells % 2.3 %; Platelet Count 62 10^3/uL (130-400); Red Blood Cell Count 4.34 10^6/uL (4.20-5.40); Red Cell Dist. Width 15.9 % (11.5-14.5); White Blood Cell Count 26.6 10^3/uL (4.8-10.8)
--- NOTE | 2024-03-13 06:33 | PTCARENOTE ---
0500- 0630: patient's potassium is 7.7 and lactic 8.0. COMMERCIAL SOLAR SALES CONSULTANT made aware. Dextrose 50% water 25 grams IV and insulin 10 units administered. Ofirmev administered for temp 100.8. Ice packs placed to groin and axillary areas. Patient's feet noted to be
colder than prior assessment. Doppler pulses completed on bilateral DPs, PTs, and popliteal without success x 3 RNs.. Femoral doppler pulses are present. COMMERCIAL SOLAR SALES CONSULTANT made aware and at the bedside. Levophed at 5 mcg/hr. Meagan hugger placed on the patient's
feet. Pt's temp 100 F.
--- NOTE | 2024-03-13 07:14 | W.PN.INTV ---
Addendum entered and electronically signed by Sathish Munoz MD 03/13/24 08:28:
Updated daughter at length with regards to course over the last 12 hours
Multisystem organ failure
Lung, liver, kidney, coagulation
Updated at length regarding course and bronchoscopy findings
All questions answered
Will be visiting later today
Original Note:
Today's Communication / Plan
Recommendations
Continue volume-cycled ventilation
Adjust ET tube
Bronchoscopy today
Treatment for hyperkalemia
Follow platelets
Check fibrinogen
Assessment
-
68-year-old female with hypertension, hypothyroidism, bipolar disorder with questionable history of cervical cancer many years ago, distant tobacco history, history of substance abuse with Valium who presents with 2 to 3-week history of cough,
presented with cardiac arrest, received CPR, epinephrine x 1 with ROSC, intubated in ED. Found to have whiteout left lung, large pleural effusion, leukocytosis, hypotension, suspected sepsis
S/p Cardiac Arrest
CPR, epi x 1, ROSC in ED
VDRF, intubated in ED 03/12
Left lung whiteout
Suspected pneumonia with large pleural effusion
S/P left CT 03/12/24
Leukocytosis
Sepsis, hypotension
Suspected pneumonia versus urinary tract infection
Metabolic acidemia
Elevated lactate
Acute renal insufficiency
Worsening
Shock liver
Bronchitis x 3 weeks
Coagulopathy, INR 2.43
Questionable renal mass
Conditions present prior to admission
Hypertension/hyperlipidemia
Hypothyroidism
Bipolar disorder
Questionable distant history of cervical cancer,
History of substance abuse, Valium
Plan/recommendations
At this time, patient is critically ill
Responded to IV fluids, norepinephrine
Patient also received vancomycin/Zosyn
Pancultured
hyperkalemia this morning noted, treated
Bloody drainage from OG/NG tube. Protonix started
Patient did wake up and move extremities with sedation yesterday p.m., now remains sedated
Moving forward
Reviewed CT chest
Suspected pneumonia with possible empyema. No clear history of falls per daughter
Thoracentesis and chest tube in place. Maintain to suction
Plan for bronchoscopic evaluation for endobronchial process
Adjust ET tube as able
Currently on volume-cycled ventilation
Wean FiO2 as able
Remains on AC 18/450/8/100%
Ppk 30, Pplat 25
Daily chest x-ray
Daily ABG
Continue sedation for now fentanyl
Propofol has been discontinued, assess mental status, neurological status
ABG reviewed. Severe metabolic acidemia
Pradhan catheter
Creatinine rising
Nephrology has been consulted
NG tube placed, bloody drainage noted
Start Protonix
Platelets noted, likely second to sepsis
Suspect extensive left-sided pneumonia
White count noted
continue vancomycin/Zosyn
Check fibrinogen
There is a herpetic appearing rash involving the left buttock
Wound care
May require further evaluation, treatment
WillCoagulopathy noted
Likely secondary to shock liver
Maintain active type and screen
Check fibrinogen
Daughter describes home situation is not optimal. has significant Alzheimer's dementia
Patient does not take care of herself, found unkempt. This is a chronic problem according to daughter
DVT prophylaxis: Subcutaneous heparin.
GI prophylaxis: Protonix twice daily
Reviewed with critical care nursing, respiratory care, pharmacy
Full code
Remains critically ill
TCCT 45 min
Subjective Dataa
Subjective Data
Date of Service:
Date of Service: March 13, 2024
Subjective:
Patient remains critically ill, ventilator dependent. Chest tube placed yesterday p.m. Greater than 2 L removed. Chest x-ray with mild improvement in aeration. Remains on 100%. Hyperkalemia this morning noted, treated with insulin/calcium/D50.
Patient on bicarbonate drip, now transitioned off lactated Ringer's, normal saline. OG tube placed, bloody drainage noted
Objective Data
Data Reviewed
Vital Signs / I&O / Oxygen:
Vital Signs
Temp Pulse Resp BP Pulse Ox
100.4 F H 76 18 104/49 100
03/13/24 04:00 03/13/24 04:00 03/13/24 04:00 03/12/24 20:30 03/13/24 04:00
Intake and Output
03/12/24 03/13/24 03/14/24
06:59 06:59 05:59
Intake Total 5132.7 / 5132.7
Output Total 2511 / 2511
Balance 2621.7 / 2621.7
SaO2 [A/C] 100
SaO2 100
Physical Exam
General: Comfortable
HEENT: Normocephalic, Anicteric and Other (Right IJ)
Cardiovascular: S1-S2, Regular Rhythm, Murmur (n), Peripheral Edema (n), Cool Extremities (Right extremity cool) and Other (Bilateral femoral intact)
Respiratory: Wheeze (n), Crackles (n), Rhonchi (n) and Non-Labored Respirations
GI: Soft, Non Distended and Non Tender
Neurology: Lethargic (Sedated) and Other (NG tube)
Skin: Cyanosis (n), Jaundice (n) and Other (Pallorous)
Labs/Micro/Reports
Lab Data
03/13/24 05:53
Laboratory Results
03/12/24 03/12/24 03/12/24
15:26 15:59 16:20
PT Cancelled 26.3 H
INR Cancelled 2.43
APTT 41.1 H
pH 7.23 L
pCO2 39 H
pO2 140 H
HCO3 16.3 L
O2 Delivery Level
03/12/24 03/13/24
22:18 05:53
PT
INR
APTT
pH 7.28 L 7.19 L*
pCO2 42 H 38 H
pO2 80 L 188 H
HCO3 19.7 L 14.5 L*
O2 Delivery Level
Microbiology
03/12/24 17:46 Pleural Fluid Gram Stain - Preliminary
--- NOTE | 2024-03-13 07:45 | PTCARENOTE ---
Received pt this am intubated and sedated on levo and vasopressin as charted. Propofol had been stopped on previous shift and pt maintained on fentanyl as charted. Pt noted to not have popliteal, dp/pt pulses by doppler, but b/l femoral pulses
noted by doppler. Dr Munoz notified when he rounded. NGT with burgundy output, orders noted to intiate protonix bid. L radial lj zeroed and transduced. L chest tube to 20cm suction as ordered. Dressing c/d/i with no s/s of crepitus.
Otherwise please see worklist.
[2024-03-13] MEDS: HEPARIN 5000 UNITS SC (07:48)
[2024-03-13] MEDS: MIRALAX 17 GRAMS TUBE (07:48)
[2024-03-13 07:49] LABS: Glucose - Point of Care 135 mg/dl (70-99)
[2024-03-13] MEDS: PROTONIX IV 40 MG IV (07:49)
[2024-03-13] MEDS: NSS (PRESERVATIVE FREE) 10 ML IV (07:49)
--- NOTE | 2024-03-13 07:49 | CON.GI ---
Consultation
-
Date/Time Consultation Requested: 03/13/24729
Date/Time Consultation Performed: 03/13/24 0815
Requesting Provider: Eduardo Lord
Performing Provider: Dr. Michael Moran / Blanquita Bonilla PA-C
Reason for Consultation: LFTs/ischemic hepatitis
Medical History
Chief Complaint / HPI
Chief Complaint: elevated LFTs
History of Present Illness:
This is a 68-year-old female with history of bipolar disorder, depression, anxiety, HTN, hyperlipidemia, and hypothyroidism who does not routinely seek medical care who presented to the ER yesterday 03/12/24 and collapsed in front of the waiting
room, found to be in cardiac arrest. Chest compressions were initiated, she was given epinephrine x1 with ROSC. She was intubated in the ER and is now admitted in ICU with septic shock, suspected pneumonia, with pancultures pending, on IV
antibiotics as well as pressors. GI is asked to consult for significantly elevated LFTs/shock liver. LFTs as follows: t bilirubin 2.0, AST 6044, ALT 3560, alk phos 119 with low serum albumin (2.0) and elevated INR (2.4) and PT (26.3). Hepatitis
serologies are pending. Serum alcohol level was not detected, salicylates and Tylenol was negative. Imaging reviewed: CT abdomen/pelvis shows a patchy density in the left lobe of the liver, suspected to be fatty liver; cholelithiasis; and a 7.4cm
cyst at the upper aspect of the spleen. There is also complete atelectasis of the left lung with a large pleural effusion and near complete obstruction of the left mainstream bronchus, suspicious for neoplasm. Bronchoscopy has been ordered. A right
renal lesion is also noted to be worrisome for neoplasm, with recommendation for MRI for further evaluation.
Patient is intubated/sedated, thus history is obtained primarily from daughter and review of medical records. According to daughter, patient had no known history of liver disease. She does not drink alcohol or use drugs now or in the past. Daughter
does note that she 'abused prescription Valium' and 'drank cough syrup to sleep,' and had recently started an herbal supplement (unknown, states it was purchased from [employer]) a few months ago. She is a former smoker, quit 12 years ago. Daughter
denies excessive Tylenol or NSAID use. There is a family history of substance abuse as patient's 3 siblings (2 sisters and 1 brother) were heroin addicts and all had Hepatitic C and ultimately from liver cancer. There is also a family history
of stomach cancer (aunt). Patient has never seen GI before and never had endoscopy or colonoscopy per daughter.
.
Past Medical History
Past Medical History: Other (bipolar disorder, depression, anxiety, HTN, hyperlipidemia, and hypothyroidism)
Past Surgical History: Other (LEEP procedure)
Social History
Tobacco: Former Smoker
Alcohol: None
Drug: Other (abused Valium in the past - per daughter)
Personal:
Living: With Family
Family History
Family History: Other (Hepatitis C/liver cancer (3 siblings); stomach cancer (aunt))
Allergies / Home Medications
Allergy/AdvReac Type Severity Reaction Status Date / Time
No Known Allergies Allergy Unverified 03/12/24 13:53
�Medication �Instructions �Recorded
amlodipine 10 mg tablet (Norvasc) 10 mg PO DAILY 03/12/24
irbesartan 150 mg tablet 150 mg PO DAILY 03/12/24
levothyroxine 50 mcg tablet 50 mcg PO DAILY 03/12/24
(Synthroid)
paroxetine HCl 20 mg tablet (Paxil) 20 mg PO DAILY 03/12/24
paroxetine HCl 40 mg tablet (Paxil) 40 mg PO DAILY 03/12/24
simvastatin 20 mg tablet (Zocor) 20 mg PO QPM 03/12/24
trazodone 150 mg tablet 300 mg PO HSPRN PRN sleep 03/12/24
Review of Systems
-
Unable to obtain full review of systems at this time due to: Patient Intubation
History Source: Family
All other systems: A 12 pt ROS was Negative except as stated above in HPI
Vital Signs
Temp Pulse Resp BP Pulse Ox
99.7 F 76 18 104/49 95
03/13/24 07:00 03/13/24 04:00 03/13/24 04:00 03/12/24 20:30 03/13/24 07:33
Physical Exam
Exam
General: Intubated
GI: Soft, Non Tender and Non Distended
Skin: Warm and Dry
Neuro: Other (sedated/intubated)
Results
WBC 26.6 10^3/uL (4.8-10.8) H 03/13/24 05:53
Hgb 11.2 g/dL (12.0-16.0) L 03/13/24 05:53
Hct 35.9 % (37.0-47.0) L 03/13/24 05:53
MCV 82.7 fL (81.0-99.0) 03/13/24 05:53
Plt Count 62 10^3/uL (130-400) L D 03/13/24 05:53
Absolute Neuts (auto) 23.7 10^3/uL (1.4-6.5) H 03/13/24 05:53
PT 26.3 Sec (11.4-14.6) H 03/12/24 15:59
INR 2.43 03/12/24 15:59
APTT 41.1 Sec (23.4-35.0) H 03/12/24 15:59
Sodium 135 mmol/L (135-145) 03/13/24 03:47
Potassium 7.7 mmol/L (3.5-5.1) H* D 03/13/24 03:47
Chloride 103 mmol/L (98-107) 03/13/24 03:47
Carbon Dioxide 16 mmol/L (22-30) L 03/13/24 03:47
BUN 49 mg/dl (7-17) H 11/02/24 03:47
Creatinine 2.3 mg/dL (0.6-1.0) H 03/13/24 03:47
Calcium 7.9 mg/dl (8.4-10.2) L 03/13/24 03:47
Total Bilirubin 2.0 mg/dl (0.2-1.3) H 03/13/24 03:47
AST 6044 U/L (14-36) H* 03/13/24 03:47
ALT 3560 U/L (0-35) H* 03/13/24 03:47
Alkaline Phosphatase 119 U/L (38-126) 03/13/24 03:47
Diagnostic Image Results:
CT Chest/Abdomen/Pelvis, 03/12/24:
1).There is a tapered near complete obstruction of the left mainstem bronchus suspicious for neoplasm with associated complete atelectasis of the left lung and large left pleural effusion. This finding is associated with mediastinal lymphadenopathy
and is suspicious for malignancy.
Bronchoscopy would be useful for further evaluation
2).There is a 3 cm heterogeneous low density lesion in the lateral aspect of the interpolar aspect of the right kidney worrisome for neoplasm which, if clinically indicated, could be best further evaluated with MRI
3). Cholelithiasis
4).There is patchy density in the left lobe of the liver which is felt to be fatty infiltration as vessels are demonstrated to run through this area
5). There is a 7.5 cm cyst at the upper aspect of the spleen
6). Emphysematous changes are evident at the right lung apex
7). Degenerative disc disease at L5-S1
Prior GI Procedures:
EGD: never
Colonoscopy: never
Assessment / Plan
-
This is a 68-year-old female with history of bipolar disorder, depression, anxiety, HTN, hyperlipidemia, and hypothyroidism who does not routinely seek medical care who presented to the ER yesterday 03/12/24 and collapsed in front of the waiting
room, found to be in cardiac arrest. Chest compressions were initiated, she was given epinephrine x1 with ROSC. She was intubated in the ER and is now admitted in ICU with septic shock, suspected pneumonia, with pancultures pending, on IV
antibiotics as well as pressors. NG tube in place. GI is asked to consult for significantly elevated LFTs/shock liver. LFTs as follows: t bilirubin 2.0, AST 6044, ALT 3560, alk phos 119 with low serum albumin (2.0) and elevated INR (2.4) and PT
(26.3). Hepatitis serologies are pending. Serum alcohol level was not detected, salicylates and Tylenol was negative. Imaging reviewed: CT abdomen/pelvis shows a patchy density in the left lobe of the liver, suspected to be fatty liver;
cholelithiasis; and a 7.4cm cyst at the upper aspect of the spleen. There is also complete atelectasis of the left lung with a large pleural effusion and near complete obstruction of the left mainstream bronchus, suspicious for neoplasm.
Bronchoscopy has been ordered. A right renal lesion is also noted to be worrisome for neoplasm, with recommendation for MRI for further evaluation.
Patient is intubated/sedated, thus history is obtained primarily from daughter and review of medical records. According to daughter, patient had no known history of liver disease. She does not drink alcohol or use drugs now or in the past. Daughter
does note that she 'abused prescription Valium' and 'drank cough syrup to sleep,' and had recently started an herbal supplement (unknown, states it was purchased from [employer]) a few months ago. She is a former smoker, quit 12 years ago. Daughter
denies excessive Tylenol or NSAID use. There is a family history of substance abuse as patient's 3 siblings (2 sisters and 1 brother) were heroin addicts and all had Hepatitic C and ultimately from liver cancer. There is also a family history
of stomach cancer (aunt). Patient has never seen GI before and never had endoscopy or colonoscopy per daughter.
IMPRESSION / PLAN:
Shock Liver / Ischemic hepatitis, s/p cardiac arrest with CPR and subsequent ROSC yesterday
- close monitoring of LFTs and INR q 8hrs
- Hepatitis serologies pending
- will order US of liver with [facility]
- per Dr. Moran, reasonable to start IV NAC gtt
- to consider further workup of chronic/autoimmune liver disease but will await results of the above
Septic Shock
- cultures pending, pt remains on broad-spectrum antibiotics
- await bronchoscopy results
Other medical issues managed as per [facility], Nephrology. We will follow.
-
-
Thank you for consultation and allowing me to participate in the patient's care. Please call the senior internet sales consultant GI physician during the after hours with any questions or concerns.
--- NOTE | 2024-03-13 08:03 | PTCARENOTE ---
pt having bronch at bedside
[2024-03-13 08:04] LABS: Creatine Phosphokinase 1458 U/L (30-135)
--- NOTE | 2024-03-13 08:09 | W.CON.NEPH ---
Consultation
-
Date/Time Consultation Requested: 03/13/24 0700
Date/Time Consultation Performed: 03/13/24 0800
Requesting Provider: Dr. Parsons
Performing Provider: Dr. Landaverde
Reason for Consultation: JOHNY
Medical History
-
Chief Complaint: cardiac arrest
History of Present Illness:
Patient is a 68-year-old female with history of bipolar disorder who does not routinely see providers. She has periodical manic episodes. Patient had been complaining of cough for the last couple of weeks. Daughter finally convinced patient to
come to the hospital for evaluation. Upon arrival to [facility], patient stepped out of the car and collapsed in front of the waiting room. She was found to be pulseless, and chest compressions were started. Patient was given epinephrine
x 1 with return of spontaneous circulation. Patient was intubated by ED staff. Patient had spontaneous movements. Chest x-ray revealed whiteout of left lung with mild shift to the right. CT chest confirms complete collapse of left lung with large
pleural effusion and possible endobronchial mass. A left chest tube was placed. She has JOHNY with rising Cr to 2.3, and hyperkalemia and lactic acidosis. He is currently critically ill in ICU on pressors/vent. This morning bronchoscopy was performed
with lavage. No endobronchial lesion was noted.
Past Medical History
Bipolar, hypertension, hypothyroidism, hyperlipidemia, cervical cancer/LEEP
Social History
Tobacco: Former Smoker
Alcohol: None
Family History
Family History: Not Pertinent
Allergies / Home Medications
Allergy/AdvReac Type Severity Reaction Status Date / Time
No Known Allergies Allergy Unverified 03/12/24 13:53
�Medication �Instructions �Recorded �Confirmed �Type
amlodipine 10 mg tablet (Norvasc) 10 mg PO DAILY 03/12/24 03/12/24 History
irbesartan 150 mg tablet 150 mg PO DAILY 03/12/24 03/12/24 History
levothyroxine 50 mcg tablet 50 mcg PO DAILY 03/12/24 03/12/24 History
(Synthroid)
paroxetine HCl 20 mg tablet (Paxil) 20 mg PO DAILY 03/12/24 History
paroxetine HCl 40 mg tablet (Paxil) 40 mg PO DAILY 03/12/24 03/12/24 History
simvastatin 20 mg tablet (Zocor) 20 mg PO QPM 03/12/24 03/12/24 History
trazodone 150 mg tablet 300 mg PO HSPRN PRN sleep 03/12/24 03/12/24 History
Review of Systems
-
Sedated
Unable to obtain full review of systems at this time due to: Patient Intubation
All other systems: Negative unless noted
Physical Exam
Vital Signs
Vital Signs
Temp Pulse Resp BP Pulse Ox
99.7 F 76 18 104/49 95
03/13/24 07:00 03/13/24 04:00 03/13/24 04:00 03/12/24 20:30 03/13/24 07:33
Lab Results
WBC 26.6 10^3/uL (4.8-10.8) H 03/13/24 05:53
RBC 4.34 10^6/uL (4.20-5.40) 03/13/24 05:53
Hgb 11.2 g/dL (12.0-16.0) L 03/13/24 05:53
Hct 35.9 % (37.0-47.0) L 03/13/24 05:53
Plt Count 62 10^3/uL (130-400) L D 03/13/24 05:53
eGFR 22.87 03/13/24 03:47
Pwt-L-Xxqryklwkjf Pept 1310 pg/ml 03/12/24 14:00
Physical Exam
Patient is sedated on ventilator in no distress. Mood and affect could not be assessed, insight and judgment could not be assessed. Pupils are equal round and reactive to light, extraocular movements could not be assessed sclera were anicteric.
Hearing could not be assessed l, ears and nose are intact. Oropharynx was clear. Neck was supple with trachea midline and no thyromegaly. Heart was regular rate and rhythm without rubs. Lower extremities with 2+ edema. Lungs were coarse with
decreased breath sounds and rhonchi on the left greater than right to auscultation bilaterally and with normal excursion. Abdomen was soft, nontender, with decreased bowel sounds, and no hepatosplenomegaly. Skin was without rash and with normal
turgor. There was significant mottling.
Data Reviewed
-
Radiology: Image Personally Visualized and interpreted (Chest x-ray on 03/13/2024 by my reading shows significant left-sided whiteout)
Labs: Labs Reviewed by me
Assessment/Plan
-
Assessment
JOHNY
hyperkalemia
septic shock
shock liver
metabolic acidosis
lactic acidosis
hypotension
left PNA/parapneumonic effusion/chest tube 03/12
Bipolar
Cardiac arrest
thrombocytopenia
Plan
treat K medically
young in place
keep MAP > 65
do not need to concentrate pressors at this time
IVF NSS at 70ml/hr
IV bicarb amps
serial BMP
high likelihood of requiring CRRT
prognosis guarded
critical care time 45 minutes
--- NOTE | 2024-03-13 08:16 | W.PN.UPDATE ---
Addendum entered and electronically signed by Sathish Munoz MD 03/13/24 09:05:
Notes that patient also does not have dopplerable pulses lower extremity. Does have femoral pulses
May require additional vascular study
Unfortunately, patient too critically ill to undergo any interventions at this time
Will defer to primary service
Original Note:
Update Note
Progress Note Update
Bronchoscopy note
Indications: Left lung infiltrate/possible endobronchial process
Informed consent: Obtained by daughter verbally 03/12, p.m.
Findings: Patient placed on 100%. Patient on sedation. Bronchoscopy advanced via ET tube. ET tube had to be adjusted as it was in the right mainstem. Following adjustment, bloody secretions throughout left greater than right. Right side was
cleared, no obvious endobronchial abnormality. Left side was clear, no obvious endobronchial abnormality. Significant inflammatory changes involving mucosa in the left upper lobe and left lower lobe.
Left lower lobe was lavaged with 40 cc of saline, sample sent for fungal/AFB/bacterial culture and cytology
Airway was clear at the termination
Patient tolerated procedure well
[2024-03-13 08:19] LABS: Blood Urea Nitrogen 47 mg/dl (7-17); Calcium 7.6 mg/dl (8.4-10.2); Carbon Dioxide 14 mmol/L (22-30); Chloride 102 mmol/L (98-107); Estimated Creatinine Clearance 24 ml/min; Glucose 143 mg/dl (70-99); Potassium 6.6 mmol/L (3.5-5.1); Sodium 135 mmol/L (135-145); eGFR 19.74
[2024-03-13] MEDS: DESENEX/MITRAZOL/ZEASORB 1 APPLIC TOPICAL (08:41)
[2024-03-13] MEDS: NSS 500 IV ×2 (08:45→12:00)
[2024-03-13 08:57] LABS: TSH 2.66 uIU/ml (0.47-4.68)
--- NOTE | 2024-03-13 09:06 | PHA.VAN.FU ---
Vancomycin Assessment / Plan
- Assessment
Renal Function: SCR Increasing
WBC's are: Trending Down
In the past 24 hrs, patient has been: Febrile (100.4F)
Concomitant Antimicrobials: ZOSYN
- Assessment - Therapeutic Drug Monitoring
Random Level: 28.8
- Dosing Plan
Dosing by Level: Hold off on dosing today
- Monitoring Plan
Random Level: 11/3 IN AM
- Follow Up
Pharmacy will continue to follow.
Vancomycin Follow UP
- -
Patient Age: 68
Patient Sex: Female
Vancomycin Day #: 2
Indication: Pulmonary/Respiratory
Requesting Provider: Dr. Parsons
Pertinent Antimicrobial Allergies:
no pertinent antimicrobial allergies
Height / Weight:
Height 5 ft 7 in
Actual Weight 89.3 kg
- Vital Signs / Lab Results
Temp Pulse Resp BP Pulse Ox
99.7 F 76 18 104/49 95
03/13/24 07:00 03/13/24 04:00 03/13/24 04:00 03/12/24 20:30 03/13/24 07:33
Lab Results - Hematology
03/12/24 03/12/24 03/13/24
14:00 19:46 05:53
WBC 38.3 H 33.2 H 26.6 H
Band Neutrophils 22 H
Lab Results - Chemistry
03/12/24 03/12/24 03/12/24
14:00 19:46 23:26
BUN 44 H 45 H 47 H
Creatinine 1.9 H 1.7 H 2.0 H
Estimated Creat Clear 37 32
Albumin 3.5
03/13/24 03/13/24 03/13/24
03:47 07:38 12:00
BUN 49 H 47 H Cancelled
Creatinine 2.3 H 2.6 H Cancelled
Estimated Creat Clear 28 24 Cancelled
Albumin 2.0 L D
03/13/24 03/13/24
16:00 20:00
BUN Cancelled Cancelled
Creatinine Cancelled Cancelled
Estimated Creat Clear Cancelled Cancelled
Albumin
03/12/24 03/12/24 03/12/24
15:26 19:46 23:26
Lactic Acid 10.7 H* 4.7 H* 4.7 H*
03/13/24
03:47
Lactic Acid 8.0 H*
Lab Results - Urine
03/12/24
17:04
Urine Nitrite (Reflex) Negative
Leukocyte Esterase Rfl Trace A
Ur Squamous Epith Cells >30
Microbiology Results
03/12/24 17:46 Gram Stain - Preliminary
Pleural Fluid
Therapeutic Drug Monitoring
Random Vancomycin 28.8 ug/ml 03/13/24 03:47
[2024-03-13 09:23] LABS: Glucose - Point of Care 131 mg/dl (70-99)
[2024-03-13] MEDS: AQUAMEPHYTON 51 MG IV (09:26)
[2024-03-13] MEDS: ACETADOTE 267 MG IV (09:27)
[2024-03-13] MEDS: NOVOLIN R 0.1 UNITS IV (09:29)
[2024-03-13 09:35] LABS: Fibrinogen 171 MG/DL (199-459)
--- NOTE | 2024-03-13 10:00 | PTCARENOTE ---
all vitals saved prior to 7am from previous shift.
[2024-03-13 10:23] LABS: Lactic Acid 11.9 mmol/L (0.7-2.0)
[2024-03-13 10:43] LABS: Glucose - Point of Care 261 mg/dl (70-99)
[2024-03-13] MEDS: ACETADOTE 522.3 MG IV (11:00)
--- NOTE | 2024-03-13 11:18 | CON.ONC ---
Impression
Impression
Hemorrhage into the left lung
Coagulopathy secondary to acute consumption of coagulation factors and shock liver
Thrombocytopenia secondary to consumption
No clear evidence of mass noted on bronchoscopy
Right kidney mass
Sepsis
Status post arrest
Splenic cyst
COPD
Decreased lower extremity arterial pulses possibly secondary to pressors
Plan
Plan
Likely a component of DIC
Evaluate arterial pulses to rule out thrombus (clinical exam without evidence of extremity discoloration)
Continue to treat underlying cause i.e. sepsis
With degree of active bleeding noted bronchoscopy would favor 2 units of FFP and 1 unit of cryoprecipitate- (higher thrombosis risk if used alone)
Given potential for erratic eating habits would also replete vitamin K
Would transfuse platelets if active bleeding less than 50K
Continue to monitor PT PTT and fibrinogen
Patient History
History of Present Illness
Patient is an unfortunate 68-year-old that suffered hypotensive arrest upon arrival now intubated with coagulopathy developing. She has noted to have blood-tinged sputum. She underwent a bronchoscopy with today which revealed significant
hemorrhage. She has noted to have decreased DP pulses, fibrinogen of 171 and a platelet count of 62,000K raising concerns for DIC in the face of multisystem organ failure associated with sepsis. Patient intubated and unresponsive.
Past-Medical/Surgical History
Past Medical History
Hypertension, hypothyroidism, hyperlipidemia, history of bipolar disorder. History of cervical cancer/LEEP procedure many years ago. Patient has history of recurrent UTIs/bladder infections
Social History
Tobacco: Former Smoker (Quit many years ago)
Alcohol: None
Drug: Other (Substance abuse in the past, Valium)
Personal:
Living: With Family
Employment: Not Employed
Family History
Family History: Other (1 daughter healthy)
Patient Medication
�Medication �Instructions �Recorded �Confirmed �Last Taken �Type
amlodipine 10 mg tablet (Norvasc) 10 mg PO DAILY 03/12/24 03/12/24 Unknown History
irbesartan 150 mg tablet 150 mg PO DAILY 03/12/24 03/12/24 Unknown History
levothyroxine 50 mcg tablet 50 mcg PO DAILY 03/12/24 03/12/24 Unknown History
(Synthroid)
paroxetine HCl 20 mg tablet (Paxil) 20 mg PO DAILY 03/12/24 Unknown History
paroxetine HCl 40 mg tablet (Paxil) 40 mg PO DAILY 03/12/24 03/12/24 Unknown History
simvastatin 20 mg tablet (Zocor) 20 mg PO QPM 03/12/24 03/12/24 Unknown History
trazodone 150 mg tablet 300 mg PO HSPRN PRN sleep 03/12/24 03/12/24 Unknown History
Active Medications
Generic Name Dose Route Start Last Admin
Trade Name Freq PRN Reason Stop Dose Admin
Dextrose 12.5 grams 03/12/24 21:00
Dextrose 50% (0.5 Grams/Ml) 50 Ml Syringe IV 04/09/24 20:59
[id number] PRN
hypoglycemia
Protocol
Fentanyl Citrate 50 mcg 03/12/24 17:15 03/13/24 01:29
Fentanyl (50 Mcg/Ml) 100 Mcg/2 Ml Ampul IV 03/26/24 17:14 50 mcg
[id number] PRN Administration
see protocol
Protocol
Glucagon 1 mg 03/12/24 21:00
Glucagon 1 Mg Vial IM 04/09/24 20:59
PRN PRN
hypoglycemia - no IV access
Protocol
Heparin Sodium 5,000 units 03/13/24 00:00 03/13/24 07:48
Heparin 5,000 Units/Ml 1 Ml Vial SC 04/10/24 00:00 5,000 units
Q8 TARAN Administration
Norepinephrine Bitartrate 4 mg in 250 mls @ 0 mls/hr 03/12/24 14:45 03/13/24 08:18
Levophed IV 250 mls
PER PROTOCOL TARAN Administration
Protocol
Per Protocol
Vancomycin HCl 1 each/ Device 0 mls @ 0 mls/hr 03/12/24 16:32
IV
PER PROTOCOL TARAN
Protocol
As Directed
Piperacillin Sod/Tazobactam Sod 3.375 gram in 50 mls @ 100 mls/hr 03/12/24 20:00 03/13/24 07:49
Zosyn IV 50 mls
Q6H TARAN Administration
Fentanyl Citrate 1,000 mcg in 100 mls @ 0 mls/hr 03/12/24 17:15 03/13/24 00:48
Sublimaze IV 100 mls
PER PROTOCOL TARAN Administration
Protocol
Per Protocol
Propofol 1,000,000 mcg in 100 mls @ 0 mls/hr 03/12/24 17:15 03/13/24 04:07
Diprivan IV 100 mls
PER PROTOCOL TARAN Administration
Protocol
Per Protocol
Vasopressin 20 units in 100 mls @ 0 mls/hr 03/13/24 00:30 03/13/24 07:52
Pitressin IV 100 mls
PER PROTOCOL TARAN Administration
Protocol
Per Protocol
Sodium Chloride 500 mls @ 70 mls/hr 03/13/24 06:00 03/13/24 08:45
Nss IV 500 mls
.Q7H9M TARAN Administration
Acetylcysteine 4,460 mg/ 522.3 mls @ 130.575 mls/hr 03/13/24 10:00 03/13/24 11:00
Sodium Chloride IV 03/13/24 13:59 522.3 mls
ONCE ONE Administration
Acetylcysteine 12,500 mg/ 1,062.5 mls @ 44.271 mls/hr 03/13/24 14:30
Sodium Chloride IV 03/16/24 14:29
.Q24H TARAN
Insulin Aspart 0 units 03/13/24 00:00 03/13/24 07:48
Insulin Aspart Low Resistance 300 Units/3 Ml Pen.Injctr SC 04/10/24 00:00 Not Given
Q6 TARAN
Protocol
Miconazole Nitrate 0 applic 03/12/24 20:00 03/13/24 08:41
Miconazole Powder Bottle TOPICAL 04/09/24 19:59 1 applic
BID TARAN Administration
Pantoprazole Sodium 40 mg 03/13/24 08:00 03/13/24 07:49
Pantoprazole Sodium 40 Mg/10 Ml Vial IV 04/10/24 07:59 40 mg
BID TARAN Administration
Polyethylene Glycol 17 grams 03/13/24 08:00 03/13/24 07:48
Polyethylene Glycol Powder 17 Grams Packet TUBE 04/10/24 07:59 17 grams
DAILY TARAN Administration
Sodium Chloride 0 flush 03/12/24 17:00
Sodium Chloride 0.9% (Flush) Syringe IV 04/09/24 16:59
PER PROTOCOL TARAN
Sodium Chloride 10 ml 03/13/24 08:00 03/13/24 07:49
Sodium Chloride 0.9% (Preservative Free) 10 Ml Vial IV 04/10/24 07:59 10 ml
BID TARAN Administration
Review of Systems
-
Unobtainable
Physical Exam
-
Exam
General: Intubated
Blood colored sputum and ET tube post bronchoscopy
GI: Soft, Non Tender and Non Distended
Skin: Warm and Dry
Neuro: Other (sedated/intubated)
Labs
Lab Results
WBC 26.6 10^3/uL (4.8-10.8) H 03/13/24 05:53
RBC 4.34 10^6/uL (4.20-5.40) 03/13/24 05:53
Hgb 11.2 g/dL (12.0-16.0) L 03/13/24 05:53
Hct 35.9 % (37.0-47.0) L 03/13/24 05:53
MCV 82.7 fL (81.0-99.0) 03/13/24 05:53
MCH 25.8 pg (27.0-31.0) L 03/13/24 05:53
MCHC 31.2 g/dL (33.0-37.0) L 03/13/24 05:53
RDW 15.9 % (11.5-14.5) H 03/13/24 05:53
Plt Count 62 10^3/uL (130-400) L D 03/13/24 05:53
MPV Not Reportable 03/13/24 05:53
Abs Immat Gran (auto) 1.0 10^3/uL (0-0.05) H 03/13/24 05:53
Absolute Neuts (auto) 23.7 10^3/uL (1.4-6.5) H 03/13/24 05:53
Absolute Lymphs (auto) 1.0 10^3/uL (1.2-3.4) L 03/13/24 05:53
Absolute Monos (auto) 0.8 10^3/uL (0.1-0.6) H 03/13/24 05:53
Absolute Eos (auto) 0.0 10^3/uL (0-0.7) 03/13/24 05:53
Absolute Basos (auto) 0.1 10^3/uL (0-0.2) 03/13/24 05:53
Immature Gran % 3.7 % (0-0.5) H 03/13/24 05:53
Neutrophils % 89.1 % (42.2-75.2) H 03/13/24 05:53
Lymphocytes % 3.7 % (20.5-51.1) L 03/13/24 05:53
Monocytes % 3.0 % (1.7-9.3) 03/13/24 05:53
Eosinophils % 0.0 % (0-6) 03/13/24 05:53
Basophils % 0.5 % (0-2) 03/13/24 05:53
Creatinine Cancelled 03/13/24 20:00
Vital Signs
Vital Signs
Temp Pulse Resp BP Pulse Ox
98.5 F 92 20 121/91 99
03/13/24 11:00 03/13/24 09:45 03/13/24 09:45 03/13/24 08:00 03/13/24 09:45
--- NOTE | 2024-03-13 11:34 | W.PN.UPDATE ---
Update Note
Progress Note Update
Left patient remains critically ill. Progressive hypotension throughout the day
Updated daughter multiple times
Continues to ooze from NG tube, ET tube
Maxed out on norepinephrine and vasopressin
Moving forward
Add Layo-Synephrine. This has been ordered by nephrology.
Minimize sedation. Patient is less responsive as before
I contacted daughter and updated with regards to her clinical progress today. I am concerned about progressive multisystem organ failure
Concerned about progressive lung injury process
Daughter is made it clear that she would not want aggressive resuscitation at this time
Therefore patient is DNR
Continue with full support
Unfortunate, suspect prognosis is extremely poor
Reviewed with critical care nursing
Daughter will try to come in when able later today
Emotional support provided
TCCT 35 min
[2024-03-13] MEDS: NEO-SYNEPHRINE 250 IV ×2 (11:39→15:12)
[2024-03-13 11:47] LABS: Glucose - Point of Care 207 mg/dl (70-99)
[2024-03-13] MEDS: SOLU-CORTEF 100 MG IV (11:59)
[2024-03-13] MEDS: NOVOLOG FLEXPEN-LOW RESISTANCE 2 UNITS SC (12:00)
--- NOTE | 2024-03-13 12:22 | PTCARENOTE ---
Systems reviewed. Pt has been unresponsive t/o shift. All sedation has been weaned off at present. Pt breathing is irregular, +bs b/l although diminished with some wheezing. Steroids have been added. Pt is now on triple pressors (levo,vaso,lew)
as charted without a perfusing bp. Dr Munoz spoke via telephone with daughter who made pt a DNR. Daughter just arrived and was made aware the pt would probably not survive which she agrees. Said there are 2 more family members that are a couple
of hours away en route. Call placed to [facility] per protocol who ruled pt out for organ donation given severity of illness, but to call with time of for potential tissue/cornea donation. Otherwise please refer to worklist.
--- NOTE | 2024-03-13 13:21 | PTCARENOTE ---
arterial us completed at bedside. infertility nurse at bedside
--- NOTE | 2024-03-13 13:29 | PTCARENOTE ---
labs hemolyzed that were sent from arterial line. luis f gonzales and ayad said to defer
--- NOTE | 2024-03-13 14:04 | W.PN.HOSP.TC ---
Today's Communication/Plan
-
See PN
Assessment / Plan
Assessment / Plan
68yo F with PMHx of HTN, Hx of substance abuse, hypothyroidism, bipolar, HLD admitted after she collapsed in the front of the ER waiting room, was pulseles, started with CPRand acheved ROSC in 6 min. Intubated. Developed multiorgan failure with
possible DIC and septic shock, found significant opacification of L lung with pleural effusion, fever, leukocytosis, s/p bronchoscopy on 03/13/24 with findings of significant inflammation and blood in L lung, developed multiorgan failure with DIC and
septic shock. Had L chest tube placed with excudative fluid draining, in spite of all intervention - increasing lactate and worsening shock. CTA chest/Abd/Pelvis showed no PE no aortic thrombus
A/P:
#Acute hypoxic respiratory failure
#Septic shock with multiorgan failure 2/2 L, most likely lobar pneumonia
#L mainstem bronch obstruction
#Large L pleural effusion
Broad spectrum Abx
Bcx and bronch cultures sent
Intubated on 03/12/24
Chest tube placed on 03/12/24 - Cx sent
Vent, sedation and pressor mgmt by metal furniture glazier
#Acute ischemic liver failure
GI consltt
Acetylcysteine trial
#Acute kidney failure with hyperkalemia
Nephrology consult - might need CRRT, however prohibited by significant hypotension even on 3 pressors
medical mgmt of hyperkalemia
follow BMP
[place]
#PEA s/p CPR
ROSC acheved in 5 min
#coagulopathy with concern for DIC
#thrombocytopenia
Hematology consult: suggested FFP and cryoprecipitate
s/p vit K
#PAD with no blood flow seen in LE
can be 2/2 DIC vs significant PAD vs pressors
#GOC
discussed with daughter in details - with fulminant development of multipe organ failure and DIC - extremely poor prognosis. DNR initiated. DIscussed additional tests and blood product trunsfusion for the mgmt of DIC - daughter declined this mgmt
due to futility in view of significant dysfunction of other organs. Daughter would like her mother to have a dignity and comfort in this situation and will discuss with the rest odf the family terminal extubation. Meanwhile will continue same mgmt.
#Hyperthyroidism
#Bipolar d/o
#HTN
hold meds
TSH WNL
#PAD with lack of supply to LE
hard to interpret with pressors
With no aortic thrombus on CTA
#Subcarinal charanjit mass 3cm
#emphysema
#Fatty liver
#R renal mass
DVT ppx SCDs
DNR
I have spent at least 68min reviewing chart, test results, communication with consultants and direct patient care
Anticipated Discharge: > 48 hours
Subjective/Interval History
-
Date of Service: March 13, 2024
Objective Data
-
Labs:
Laboratory Results
03/13/24 03/13/24 03/13/24
03:47 05:53 07:38
WBC 26.6 H
Hgb 11.2 L
Hct 35.9 L
Plt Count 62 L D
HCO3 14.5 L*
Sodium 135 135
Potassium 7.7 H* D Cancelled
Chloride 103
Carbon Dioxide 16 L
BUN 49 H
Creatinine 2.3 H
Glucose 139 H
Calcium 7.9 L
Total Bilirubin 2.0 H
AST 6044 H*
ALT 3560 H*
Alkaline Phosphatase 119
03/13/24 03/13/24 03/13/24
07:38 12:59 12:59
WBC
Hgb
Hct
Plt Count
HCO3
Sodium Cancelled
Potassium 6.6 H* Cancelled
Chloride 102 Cancelled
Carbon Dioxide 14 L* Cancelled
BUN 47 H Cancelled
Creatinine 2.6 H Cancelled
Glucose 143 H Cancelled
Calcium 7.6 L Cancelled
Total Bilirubin Cancelled Cancelled
AST Cancelled
ALT
Alkaline Phosphatase
03/13/24 03/13/24 03/13/24
12:59 12:59 12:59
WBC
Hgb
Hct
Plt Count
HCO3
Sodium
Potassium
Chloride
Carbon Dioxide
BUN
Creatinine
Glucose
Calcium
Total Bilirubin
AST Cancelled
ALT Cancelled Cancelled
Alkaline Phosphatase Cancelled Cancelled
03/13/24 03/13/24 03/13/24
13:21 16:00 20:00
WBC
Hgb
Hct
Plt Count
HCO3
Sodium Cancelled Cancelled Cancelled
Potassium Cancelled Cancelled Cancelled
Chloride Cancelled Cancelled Cancelled
Carbon Dioxide Cancelled Cancelled Cancelled
BUN Cancelled Cancelled Cancelled
Creatinine Cancelled Cancelled Cancelled
Glucose Cancelled Cancelled Cancelled
Calcium Cancelled Cancelled Cancelled
Total Bilirubin Cancelled Pending
AST Cancelled Pending
ALT Cancelled Pending
Alkaline Phosphatase Cancelled Pending
Vital Signs:
Vital Signs
Temp Pulse Resp BP Pulse Ox
98.5 F 99 18 85/43 91
03/13/24 11:00 03/13/24 11:45 03/13/24 11:45 03/13/24 11:30 03/13/24 12:00
I&O
03/12/24 03/13/24 03/14/24
06:59 06:59 05:59
Intake Total 5308.7 / 5476.2 1072.0 / 1072.0
Output Total 2726 / 2726
Balance 2582.7 / 2750.2 1059.0 / 1059.0
Review of Systems
-
Unable to obtain full review of systems at this time due to: Patient Intubation
Physical Exam
-
General: Intubated
Respiratory: Decreased Breath Sounds (R) and Chest Tubes
Cardiac: Regular Rhythm
GI: Soft
Musculoskeletal: No Clubbing and No Edema
Neuro: Sedated
--- NOTE | 2024-03-13 14:11 | PTCARENOTE ---
daughter was given jewelry that had been removed from pt. requested clothing be placed in trash.
--- NOTE | 2024-03-13 14:39 | CHAP ---
Visited Marta at 12:15pm. She was sleeping, non-responsive. Daughter Marielena and son-in-law arrived - emotional support provided. Marielena requested emergency Sabianist for her mother, which was provided. Prayers for end-of-life were also
offered, commending Marta to God, asking blessings, and giving thanks for her life and love. Prayer blanket provided, and assurance of our on-going availability given.
[2024-03-13] MEDS: CALCIUM GLUCONATE 1000 MG IV (14:48)
[2024-03-13 14:57] LABS: Glucose - Point of Care 141 mg/dl (70-99)
[2024-03-13] MEDS: ACETADOTE 1062.5 MG IV (15:10)
--- NOTE | 2024-03-13 15:30 | PTCARENOTE ---
Lots of support for family, bp very briefly improved with administration of calcium, insulin, dextrose and bicarb but quickly returned to sbp 40s maxed on 3 pressors as charted. Otherwise no changes.
--- NOTE | 2024-03-13 16:11 | PTCARENOTE ---
went in room to spike new bag of levophed and daughter said not to. family in room visiting. daughter has agreed not to hang any more bags of pressors for now. emotional support provided to family.
--- NOTE | 2024-03-13 17:46 | PTCARENOTE ---
Dr Harden on unit to pronounce pt. Pt taken off vent and ngt removed and family continues to visit
--- NOTE | 2024-03-13 18:01 | W.PN.DEATH ---
Pronouncement of
-
Called to see patient to pronounce.
No spontaneous heart tones or respirations noted.
Patient not responsive to verbal stimuli.
Patient is pronounced .
Time of : 04:50
Date of : 03/13/24
Family Notified: Yes
--- NOTE | 2024-03-13 18:30 | PTCARENOTE ---
[facility] called, pt medically unsuitable for donation. postmortem care completed, young, chest tube, tlc and peripheral iv sites removed.
--- NOTE | 2024-03-14 07:10 | W.DCSUMMARY ---
Discharge Summary
Discharge Data
Date of Admission: 03/12/24
Date of Discharge: 03/14/24
-
Pending Results: No
Hospital Course
68yo F with PMHx of HTN, Hx of substance abuse, hypothyroidism, bipolar, HLD admitted after she collapsed in the front of the ER waiting room, was pulseles, started with CPRand acheved ROSC in 6 min. Intubated. Developed multiorgan failure with
possible DIC and septic shock, found significant opacification of L lung with pleural effusion, fever, leukocytosis, s/p bronchoscopy on 03/13/24 with findings of significant inflammation and blood in L lung, developed multiorgan failure with DIC and
septic shock. Had L chest tube placed with excudative fluid draining, in spite of all intervention - increasing lactate and worsening shock. CTA chest/Abd/Pelvis showed no PE no aortic thrombus. As per family patient was made DNR and decision for
withdrawal of care was pending. Patient had PEA later in the day and was pronounced at 16:50pm
Patient was managed for:
#Acute hypoxic respiratory failure
#Septic shock with multiorgan failure 2/2 L, most likely lobar pneumonia
#L mainstem bronch obstruction
#Large L pleural effusion
#Acute ischemic liver failure
#Acute kidney failure with hyperkalemia
#PEA s/p CPR
#coagulopathy with concern for DIC
#thrombocytopenia
#PAD with no blood flow seen in LE
#GOC
#Hyperthyroidism
#Bipolar d/o
#HTN
#PAD with lack of supply to LE
#Subcarinal charanjit mass 3cm
#emphysema
#Fatty liver
#R renal mass
Discharge Plan
-
Patient Disposition:
Date/Time
Date/Time: 03/13/24 16:50
Discharge Date and Time
Discharge Date/Time: 03/13/24 16:50
Print Language: AZERI
[2024-03-15 18:47] LABS: Hepatitis B Surface Antigen Negative (Negative)
[2024-03-15 19:04] LABS: Hepatitis B Core Ab, Total Negative (Negative); Hepatitis B Surface Antibody Negative
[2024-03-15 19:08] LABS: Hepatitis C Antibody Negative (Negative)
[2024-03-15 19:12] LABS: Hepatitis A Antibody, Total Negative (Negative)
== END 2024-03-13 16:50 | disposition expired | DRG 871 ==
LOC: ICU 15:57
PROVIDERS: Nurse Practitioner Primary Care; Radiology Diagnostic Radiology; ADMITTING PHYSICIAN Hospitalist; ATTENDING PHYSICIAN Internal Medicine; CONSULT PHYSICIAN Internal Medicine Critical Care Medicine; CONSULT PHYSICIAN Internal Medicine Hematology & Oncology; CONSULT PHYSICIAN Specialist; CONSULT PHYSICIAN Student in an Organized Health Care Education/Training Program; EMERGENCY PHYSICIAN Emergency Medicine; FAMILY PHYSICIAN Nurse Practitioner
PROC: 0W9B30Z Drainage of Left Pleural Cavity with Drainage Device, Percutaneous Approach (ICD-10-PCS; 2024-03-13)
PROC: 05HM33Z Insertion of Infusion Device into Right Internal Jugular Vein, Percutaneous Approach (ICD-10-PCS; 2024-03-13)
DX: A41.9 Sepsis, unspecified organism (principal); D65 Disseminated intravascular coagulation [defibrination syndrome]; J18.1 Lobar pneumonia, unspecified organism; J96.01 Acute respiratory failure with hypoxia; R65.21 Severe sepsis with septic shock; K72.00 Acute and subacute hepatic failure without coma; J86.9 Pyothorax without fistula; N17.9 Acute kidney failure, unspecified; E87.20 Acidosis, unspecified; J44.0 Chronic obstructive pulmonary disease with (acute) lower respiratory infection; J91.8 Pleural effusion in other conditions classified elsewhere; F31.89 Other bipolar disorder; J98.11 Atelectasis; I46.9 Cardiac arrest, cause unspecified; E87.5 Hyperkalemia; I10 Essential (primary) hypertension; E03.9 Hypothyroidism, unspecified; E78.5 Hyperlipidemia, unspecified; Z87.891 Personal history of nicotine dependence; Z85.41 Personal history of malignant neoplasm of cervix uteri; R21 Rash and other nonspecific skin eruption; Z66 Do not resuscitate; E05.90 Thyrotoxicosis, unspecified without thyrotoxic crisis or storm
CPT/HCPCS: 88305; 31500; 32557; 36556; 36600; 51701; 51798; 70450; 71045; 71275; 74018; 74177; 76937; 80048; 80053; 80143; 80179; 80202; 80306; 81003; 81015; 82077; 82140; 82550; 82805; 82945; 82962; 83605; 83615; 83735; 83880; 83986; 84157; 84443; 84478; 84484; 85025; 85027; 85384; 85610; 85730; 86704; 86705; 86706; 86708; 86709; 86803; 86850; 86900; 86901; 87015; 87040; 87070; 87086; 87102; 87106; 87116; 87205; 87340; 87641; 88112; 88341; 88342; 89051; 92950; 93005; 93922; 93925; 94002; 94003; 96361; 96374; 96375; 99291; C1729; C1751; C1769; J0132; J7030; Q9967